=== PATIENT | male | born 1970 | race Caucasian/White ===

== ENCOUNTER 2017-05-14 09:39 | Emergency (ER) | payer SELFPAY ==
[2017-05-14] MEDS ORDERED: Albuterol/Ipratropium 3.0-0.5 MG/3 ML Neb Soln NEB ONE ×2 (10:00→13:05)
--- NOTE | 2017-05-14 11:15 | CR ---
EXAMINATION: Portable chest radiograph. HISTORY: Shortness of breath. FINDINGS: The trachea is midline. The heart is normal in size. There are increased central pulmonary infiltrat es predominantly within a perihilar distribution. No definite pleural effusion or pneumothorax. Osseous structures appear unremarkable. IMPRESSION: Centralized pulmonary opacities noted, this could represent pneumonia, edema, or inhalation injury.
[2017-05-14 11:16] LABS: CHLORIDE,CL 103 mmol/L (98-110); SODIUM,NA 137 mmol/L (136-146)
--- NOTE | 2017-05-14 11:26 | EDM.PDOC ---
ED HPI GENERAL MEDICAL PROBLEM - General Chief Complaint: Respiratory Problem Stated Complaint: CHEM IN BREATHING PASSAWAYS Time Seen by Provider: 05/14/17 09:47 Source of Information: Reports: Patient History Limitations: Reports: No Limitations - History of Present Illness INITIAL COMMENTS - FREE TEXT/NARRATIVE: History of present illness: []Patient was spraying some clear coat paint 3 days ago and developed shortness of breath at night. His symptoms have been progressively worsening. Patient denies any fevers or cough. He states he flew to and from [place] last week but denies having history of any blood clots, chest pain or leg swelling. Patient does have asthma and COPD and uses inhalers that have not been helping his us of breath. He also is on prednisone and for the last 2 days has been taking 20 mg a day without improvement Review of systems: As per history of present illness and below otherwise all systems reviewed and negative. Past medical history: As per history of present illness and as reviewed below otherwise noncontributory. Surgical history: As per history of present illness and as reviewed below otherwise noncontributory. Social history: No reported history of drug or alcohol abuse. Family history: As per history of present illness and as reviewed below otherwise noncontributory. Physical exam: General: Well developed, well nourished, short of breath with O2 sats high 80s on room air HEENT: Atraumatic, normocephalic, pupils reactive, negative for conjunctival pallor or scleral icterus, mucous membranes moist, throat clear, neck supple, nontender, trachea midline. Lungs: Clear to auscultation, breath sounds diminished bilaterally with crackles at the bases, chest nontender. Heart: S1S2, regular, negative for clicks, rubs, or JVD. Abdomen: Soft, nondistended, nontender. Negative for masses or hepatosplenomegaly. Negative for costovertebral tenderness. Pelvis: Stable nontender. Genitourinary: Deferred. Rectal: Deferred. Extremities: Atraumatic, negative for cords or calf pain. Neurovascular unremarkable. Neuro: Awake, alert, oriented. Cranial nerves II through XII unremarkable. Cerebellum unremarkable. Motor and sensory unremarkable throughout. Exam nonfocal. Diagnostics: []Labs are normal, and CT chest were done showing interstitial edema consistent with inhalation injury no PE Therapeutics: []Solu-Medrol, DuoNeb, oxygen Impression: []Inhalation injury with interstitial edema. Discussed with hospitalist here who recommends transferring this patient. Plan: []Transfer to [place] Definitive disposition and diagnosis as appropriate pending reevaluation and review of above. lungs Pain Score (Numeric/FACES): 5 - Related Data Allergies Allergy/AdvReac Type Severity Reaction Status Date / Time Penicillins Allergy Other Verified 05/14/17 09:49 Home Meds: Home Meds Albuterol [Ventolin HFA] 8 gm INH ASDIRECTED 05/14/17 [History] Dexamethasone [Dexamethasone] 4 mg PO ASDIRECTED 05/14/17 [History] Escitalopram [Lexapro] 10 mg PO DAILY 05/14/17 [History] Ipratropium [Atrovent HFA] 1 gm INH ASDIRECTED 05/14/17 [History] Past Medical History Respiratory History: Reports: Asthma Social & Family History - Family History Respiratory: Reports: Asthma Psychiatric: Reports: Anxiety - Tobacco Use Smoking Status *Q: Current Every Day Smoker Years of Tobacco use: 15 Packs/Tins Daily: 0.5 - Caffeine Use Caffeine Use: Reports: Energy Drinks, Soda - Recreational Drug Use Recreational Drug Use: No ED ROS GENERAL - Review of Systems Review Of Systems: See Below (See history of present illness) ED EXAM, GENERAL - Physical Exam Exam: See Below (See history of present illness) Course - Vital Signs Last Recorded V/S: Last Vital Signs Temp 36.3 C 05/14/17 09:54 Pulse 111 H 05/14/17 13:40 Resp 20 05/14/17 13:40 BP 113/72 05/14/17 13:40 Pulse Ox 94 L 05/14/17 13:40 - Orders/Labs/Meds Orders: Active Orders 24 hr Category Date Time Status Oxygen Therapy, ED [RC] ASDIRECTED Care 05/14/17 10:01 Active RT Aerosol Therapy [RC] ASDIRECTED Care 05/14/17 10:01 Active RT Aerosol Therapy [RC] ASDIRECTED Care 05/14/17 13:05 Active Labs: Laboratory Tests 05/14/17 05/14/17 05/14/17 Range/Units 10:15 10:15 10:15 WBC 13.47 H (4.0-11.0) K/uL RBC 4.77 (4.50-5.90) M/uL Hgb 15.1 (13.0-17.0) g/dL Hct 45.1 (38.0-50.0) % MCV 94.5 (80.0-98.0) fL MCH 31.7 (27.0-32.0) pg MCHC 33.5 (31.0-37.0) g/dL RDW Std Deviation 47.9 (28.0-62.0) fl RDW Coeff of Kwadwo 14 (11.0-15.0) % Plt Count 231 (150-400) K/uL MPV 10.10 (7.40-12.00) fL Neut % (Auto) 80.4 H (48.0-80.0) % Lymph % (Auto) 11.9 L (16.0-40.0) % Whitman % (Auto) 4.9 (0.0-15.0) % Eos % (Auto) 2.7 (0.0-7.0) % Baso % (Auto) 0.1 (0.0-1.5) % Neut # (Auto) 10.8 H (1.4-5.7) K/uL Lymph # (Auto) 1.6 (0.6-2.4) K/uL Whitman # (Auto) 0.7 (0.0-0.8) K/uL Eos # (Auto) 0.4 (0.0-0.7) K/uL Baso # (Auto) 0.0 (0.0-0.1) K/uL Nucleated RBC % 0.0 /100WBC Nucleated RBCs # 0 K/uL D-Dimer, Quantitative 0.79 H (0.0-0.52) mg/LFEU Sodium 137 (136-146) mmol/L Potassium 4.2 (3.5-5.1) mmol/L Chloride 103 (98-110) mmol/L Carbon Dioxide 25 (21-31) mmol/L BUN 15 (6.0-23.0) mg/dL Creatinine 0.8 (0.6-1.5) mg/dL Est Cr Clr Drug Dosing 86.26 mL/min Estimated GFR (MDRD) > 60.0 ml/min Glucose 89 (60-110) mg/dL Calcium 9.8 (8.8-10.8) mg/dL Total Bilirubin 0.6 (0.1-1.5) mg/dL AST 36 (5-40) IU/L ALT 53 (8-54) IU/L Alkaline Phosphatase 69 (40-150) B-Natriuretic Peptide (<100) PG/ML Total Protein 7.4 (6.0-8.0) g/dL Albumin 3.8 (3.5-5.0) g/dL Globulin 3.6 H (2.0-3.5) g/dL Albumin/Globulin Ratio 1.1 L (1.3-2.8) 05/14/17 Range/Units 10:16 WBC (4.0-11.0) K/uL RBC (4.50-5.90) M/uL Hgb (13.0-17.0) g/dL Hct (38.0-50.0) % MCV (80.0-98.0) fL MCH (27.0-32.0) pg MCHC (31.0-37.0) g/dL RDW Std Deviation (28.0-62.0) fl RDW Coeff of Kwadwo (11.0-15.0) % Plt Count (150-400) K/uL MPV (7.40-12.00) fL Neut % (Auto) (48.0-80.0) % Lymph % (Auto) (16.0-40.0) % Whitman % (Auto) (0.0-15.0) % Eos % (Auto) (0.0-7.0) % Baso % (Auto) (0.0-1.5) % Neut # (Auto) (1.4-5.7) K/uL Lymph # (Auto) (0.6-2.4) K/uL Whitman # (Auto) (0.0-0.8) K/uL Eos # (Auto) (0.0-0.7) K/uL Baso # (Auto) (0.0-0.1) K/uL Nucleated RBC % /100WBC Nucleated RBCs # K/uL D-Dimer, Quantitative (0.0-0.52) mg/LFEU Sodium (136-146) mmol/L Potassium (3.5-5.1) mmol/L Chloride (98-110) mmol/L Carbon Dioxide (21-31) mmol/L BUN (6.0-23.0) mg/dL Creatinine (0.6-1.5) mg/dL Est Cr Clr Drug Dosing mL/min Estimated GFR (MDRD) ml/min Glucose (60-110) mg/dL Calcium (8.8-10.8) mg/dL Total Bilirubin (0.1-1.5) mg/dL AST (5-40) IU/L ALT (8-54) IU/L Alkaline Phosphatase (40-150) B-Natriuretic Peptide 53 (<100) PG/ML Total Protein (6.0-8.0) g/dL Albumin (3.5-5.0) g/dL Globulin (2.0-3.5) g/dL Albumin/Globulin Ratio (1.3-2.8) Meds: Medications Discontinued Medications Generic Name Dose Route Start Last Admin Trade Name Freq PRN Reason Stop Dose Admin Albuterol/Ipratropium 3 ml 05/14/17 10:00 05/14/17 10:06 Duoneb 3.0-0.5 Mg/3 Ml [facility] 05/14/17 10:01 3 ml ONETIME ONE Administration Albuterol/Ipratropium 3 ml 05/14/17 13:05 05/14/17 13:11 Duoneb 3.0-0.5 Mg/3 Ml [facility] 05/14/17 13:06 3 ml ONETIME ONE Administration Lorazepam 1 mg 05/14/17 13:36 Ativan IVPUSH 05/14/17 13:37 ONETIME ONE Methylprednisolone Sodium Succinate 125 mg 05/14/17 13:04 05/14/17 13:40 Solu-Medrol IVPUSH 05/14/17 13:05 125 mg ONETIME ONE Administration Departure - Departure Time of Disposition: 13:49 Disposition: DC/Tfer to Acute Hospital 02 Condition: Good Clinical Impression: Toxic inhalation injury Qualifiers: Encounter type: initial encounter Injury intent: accidental or unintentional Qualified Code(s): T59.91XA - Toxic effect of unspecified gases, fumes and vapors, accidental (unintentional), initial encounter - Discharge Information Referrals: PCP,None [Primary Care Provider] - Forms: ED Department Discharge - My Orders Last 24 Hours: My Active Orders 05/14/17 10:01 Oxygen Therapy, ED [RC] ASDIRECTED RT Aerosol Therapy [RC] ASDIRECTED 05/14/17 13:05 RT Aerosol Therapy [RC] ASDIRECTED - Assessment/Plan Last 24 Hours: My Active Orders 05/14/17 10:01 Oxygen Therapy, ED [RC] ASDIRECTED RT Aerosol Therapy [RC] ASDIRECTED 05/14/17 13:05 RT Aerosol Therapy [RC] ASDIRECTED
--- NOTE | 2017-05-14 12:50 | CT ---
EXAMINATION: CTA chest HISTORY: Shortness of breath COMPARISON: Chest radiograph from the same day TECHNIQUE: Axial CT images obtained through the chest following the administration of 50 mL of Isovu e 37 and the right antecubital fossa. Coronal and sagittal reconstructions obtained. FINDINGS: Patchy airspace infiltrates noted within the lungs bilaterally predominantly within the pe rihilar distribution. No pleural effusion or pneumothorax. The heart is normal in size without a per icardial effusion. The thoracic aorta is normal in caliber. Main pulmonary arteries are patent witho ut a identified pulmonary embolism. Nonpathologically enlarged mediastinal and hilar lymph nodes not ed. The central airways are clear. No axillary lymphadenopathy. The visualized upper abdomen appears grossly unremarkable. No suspicious osseous abnormalities. IMPRESSION: 1. Patchy predominantly central perihilar infiltrates. This may represent edema, atypical infection, or possibly inhalational injury. 2. No pulmonary embolism identified.
[2017-05-14] MEDS ORDERED: methylPREDNISolone Sodium Succinate 125 MG/2 ML SDV IVPUSH ONE (13:04)
[2017-05-14] MEDS ORDERED: LORazepam 2 MG/ML MDV IVPUSH ONE (13:36)
[2017-05-14 13:41] VITALS: BP 113/72
[2017-05-14] MEDS ORDERED: Iopamidol 755 MG/ML 500 ML Multipack Bottle IVPUSH STA (16:20)
== END 2017-05-14 14:25 ==
LOC: MW.ED 09:39
DX: T59.91XA Toxic effect of unspecified gases, fumes and vapors, accidental (unintentional), initial encounter (principal); J45.909 Unspecified asthma, uncomplicated; F17.210 Nicotine dependence, cigarettes, uncomplicated; Z88.0 Allergy status to penicillin; Z79.899 Other long term (current) drug therapy
CPT/HCPCS: 36415; 71010; 71275; 80053; 83880; 85025; 85379; 94640; 94664; 96374; 96375; 99285; J2060; J2930; Q9967

== ENCOUNTER 2017-07-15 10:48 | Emergency (ER) | payer SELFPAY ==
--- NOTE | 2017-07-15 10:55 | EDM.PDOC ---
ED HPI GENERAL MEDICAL PROBLEM - General Chief Complaint: Lower Extremity Injury/Pain Stated Complaint: GOUT IN RT FOOT Time Seen by Provider: 07/15/17 10:50 - History of Present Illness INITIAL COMMENTS - FREE TEXT/NARRATIVE: HISTORY AND PHYSICAL: History of present illness: Patient's 47-year-old white male presents with a concern of right great toe pain patient has a long-standing history of gouty arthritis he states he's been off his medicines for about a year he has yet to secure local medical care he denies fever chills nausea vomiting denies trauma denies other joint pain or concern he has been treated in past with prednisone as well as indomethacin with success Review of systems: As per history of present illness and below otherwise all systems reviewed and negative. Past medical history: As per history of present illness and as reviewed below otherwise noncontributory. Surgical history: As per history of present illness and as reviewed below otherwise noncontributory. Social history: No reported history of drug or alcohol abuse. Family history: As per history of present illness and as reviewed below otherwise noncontributory. Physical exam: HEENT: Atraumatic, normocephalic, pupils reactive, negative for conjunctival pallor or scleral icterus, mucous membranes moist, throat clear, neck supple, nontender, trachea midline. Lungs: Clear to auscultation, breath sounds equal bilaterally, chest nontender. Heart: S1S2, regular, negative for clicks, rubs, or JVD. Abdomen: Soft, nondistended, nontender. Negative for masses or hepatosplenomegaly. Negative for costovertebral tenderness. Pelvis: Stable nontender. Genitourinary: Deferred. Rectal: Deferred. Extremities: Right foot is remarkable for tenderness and erythema in the region of the first metatarsal CMS neurovascular exam is unremarkable Neuro: Awake, alert, oriented. Cranial nerves II through XII unremarkable. Cerebellum unremarkable. Motor and sensory unremarkable throughout. Exam nonfocal. Diagnostics: None Therapeutics: None Impression: #1 gouty arthritis Definitive disposition and diagnosis as appropriate pending reevaluation and review of above. - Related Data Allergies Allergy/AdvReac Type Severity Reaction Status Date / Time Penicillins Allergy Other Verified 07/15/17 10:52 Home Meds: Home Meds Albuterol [Ventolin HFA] 8 gm INH ASDIRECTED 05/14/17 [History] Dexamethasone [Dexamethasone] 4 mg PO ASDIRECTED 05/14/17 [History] Escitalopram [Lexapro] 10 mg PO DAILY 05/14/17 [History] Ipratropium [Atrovent HFA] 1 gm INH ASDIRECTED 05/14/17 [History] Past Medical History Respiratory History: Reports: Asthma Social & Family History - Family History Respiratory: Reports: Asthma Psychiatric: Reports: Anxiety - Tobacco Use Smoking Status *Q: Current Every Day Smoker Years of Tobacco use: 15 Packs/Tins Daily: 0.5 - Caffeine Use Caffeine Use: Reports: Energy Drinks, Soda - Recreational Drug Use Recreational Drug Use: No Review of Systems - Review of Systems Review Of Systems: ROS reveals no pertinent complaints other than HPI. ED EXAM, GENERAL - Physical Exam Exam: See Below (See dictation) Departure - Departure Time of Disposition: 10:54 Disposition: Home, Self-Care 01 Condition: Good Clinical Impression: Acute gout - Discharge Information Referrals: PCP,None [Primary Care Provider] - Additional Instructions: The following information is given to patients seen in the emergency department who are being discharged to home. This information is to outline your options for follow-up care. We provide all patients seen in our emergency department with a follow-up referral. The need for follow-up, as well as the timing and circumstances, are variable depending upon the specifics of your emergency department visit. If you don't have a primary care physician on staff, we will provide you with a referral. We always advise you to contact your personal physician following an emergency department visit to inform them of the circumstance of the visit and for follow-up with them and/or the need for any referrals to a consulting specialist. The emergency department will also refer you to a specialist when appropriate. This referral assures that you have the opportunity for followup care with a specialist. All of these measure are taken in an effort to provide you with optimal care, which includes your followup. Under all circumstances we always encourage you to contact your private physician who remains a resource for coordinating your care. When calling for followup care, please make the office aware that this follow-up is from your recent emergency room visit. If for any reason you are refused follow-up, please contact the [facility] emergency department at and asked to speak to the emergency department charge nurse. [facility] [address] [place] [id number] Indomethacin prednisone as prescribed call to schedule routine appointment above with clinic return as needed as discussed
[2017-07-15 11:07] VITALS: BP 152/74
== END 2017-07-15 11:03 | disposition home or self-care (01) ==
LOC: MW.ED 10:48
DX: M10.9 Gout, unspecified (principal); J45.909 Unspecified asthma, uncomplicated; F17.210 Nicotine dependence, cigarettes, uncomplicated; Z88.0 Allergy status to penicillin; Z79.899 Other long term (current) drug therapy
CPT/HCPCS: 99282

== ENCOUNTER 2018-12-14 12:16 | Emergency (ER) | payer SELFPAY ==
[2018-12-14] MEDS ORDERED: Ketorolac 60 MG/2 ML SDV IM ONE (12:29)
--- NOTE | 2018-12-14 12:29 | EDM.PDOC ---
ED HPI GENERAL MEDICAL PROBLEM - General Chief Complaint: Upper Extremity Injury/Pain Stated Complaint: HURT WRIST Time Seen by Provider: 12/14/18 12:19 Source of Information: Reports: Patient History Limitations: Reports: No Limitations - History of Present Illness INITIAL COMMENTS - FREE TEXT/NARRATIVE: HISTORY AND PHYSICAL: Left wrist injury History of present illness: Patient is a 48-year-old male who presents to the emergency room with complaints of left wrist pain. He states he had slipped and fallen on the ice yesterday and unsure how he caught his arm. 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 He denies any previous injury to the affected extremity. Denies any numbness or tingling of the affected extremity. Denies hitting his head or any loss of consciousness. He's been able to ambulate and move all other extremities without any difficulty. Review of systems: As per history of present illness and below otherwise all systems reviewed and negative. Past medical history: As per history of present illness and as reviewed below otherwise noncontributory. Surgical history: As per history of present illness and as reviewed below otherwise noncontributory. Social history: See social history for further information Family history: As per history of present illness and as reviewed below otherwise noncontributory. Physical exam: General: Well-developed and well-nourished 48-year-old male. Alert and oriented. Nontoxic appearing and in no acute distress. HEENT: Atraumatic, normocephalic, pupils equal and reactive bilaterally, negative for conjunctival pallor or scleral icterus, mucous membranes moist, TMs normal bilaterally, throat clear, neck supple, nontender, trachea midline. No drooling or trismus noted. No meningeal signs. No hot potato voice noted. Lungs: Clear to auscultation, breath sounds equal bilaterally, chest nontender. Heart: S1S2, regular rate and rhythm without overt murmur Abdomen: Soft, nondistended, nontender. Negative for masses or hepatosplenomegaly. Negative for costovertebral tenderness. Pelvis: Stable nontender. Genitourinary: Deferred. Rectal: Deferred. Skin: Intact, warm, dry. No lesions or rashes noted. Extremities: Pain with palpation of the left anterior wrist. No snuffbox tenderness. Strong radial pulse. Cap refill less than 3 seconds. +CMS. Neurovascular unremarkable. Neuro: Awake, alert, oriented. Cranial nerves II through XII unremarkable. Cerebellum unremarkable. Motor and sensory unremarkable throughout. Exam nonfocal. Notes: X-ray shows no acute findings. Does have an old fracture that is noted on x- ray. Discussed these results with the patient and encouraged him to follow-up with the orthopedic provider on Sunday. We'll give him a cockup wrist splint and medication for pain. Supportive care measures were reviewed and discussed. Voices understanding and is agreeable to plan of care. Denies any further questions or concerns at this time. Diagnostics: Wrist x-ray Therapeutics: Toradol IM Prescription: Dahinda (#15) Impression: Left wrist injury Plan: 1. Rest, ice, elevate the extremity as able. Please use the splint for comfort. 2. Tylenol and/or ibuprofen as needed for pain management. 3. Please follow-up with the orthopedic provider and/or your primary care provider in the next 1-2 days. Return to the ED as needed and as discussed Definitive disposition and diagnosis as appropriate pending reevaluation and review of above. Left Wrist Pain Score (Numeric/FACES): 10 - Related Data Allergies Allergy/AdvReac Type Severity Reaction Status Date / Time Penicillins Allergy Other Verified 12/14/18 12:26 Home Meds: Home Meds Albuterol [Ventolin HFA] 8 gm INH ASDIRECTED 05/14/17 [History] Dexamethasone 4 mg PO ASDIRECTED 05/14/17 [History] Escitalopram [Lexapro] 10 mg PO DAILY 05/14/17 [History] Ipratropium [Atrovent HFA] 1 gm INH ASDIRECTED 05/14/17 [History] Acetaminophen/HYDROcodone [Dahinda 325-5 MG] 1 tab PO Q4H PRN #15 tablet 12/14/18 [Rx] Past Medical History HEENT History: Reports: None Cardiovascular History: Reports: Hypertension Respiratory History: Reports: Asthma Gastrointestinal History: Reports: None Genitourinary History: Reports: None Musculoskeletal History: Reports: Gout Neurological History: Reports: None Psychiatric History: Reports: Anxiety Endocrine/Metabolic History: Reports: None Dermatologic History: Reports: None - Infectious Disease History Infectious Disease History: Reports: Chicken Pox, Influenza - Past Surgical History HEENT Surgical History: Reports: None GI Surgical History: Reports: None Social & Family History - Family History Respiratory: Reports: Asthma Psychiatric: Reports: Anxiety - Caffeine Use Caffeine Use: Reports: Energy Drinks, Soda Review of Systems - Review of Systems Review Of Systems: ROS reveals no pertinent complaints other than HPI. ED EXAM, GENERAL - Physical Exam Exam: See Below (See dictation) Course - Vital Signs Last Recorded V/S: Last Vital Signs Temp 96.5 F 12/14/18 12:24 Pulse 97 12/14/18 12:24 Resp 18 12/14/18 12:24 BP 179/115 H 12/14/18 12:37 Pulse Ox 95 12/14/18 12:24 - Orders/Labs/Meds Orders: Active Orders 24 hr Category Date Time Status DME for Discharge [COMM] Stat Oth 12/14/18 12:29 Ordered Meds: Medications Discontinued Medications Generic Name Dose Route Start Last Admin Trade Name Freq PRN Reason Stop Dose Admin Ketorolac Tromethamine 60 mg 12/14/18 12:29 12/14/18 12:35 Toradol IM 12/14/18 12:30 60 mg ONETIME ONE Administration Departure - Departure Time of Disposition: 13:16 Disposition: Home, Self-Care 01 Clinical Impression: Left wrist injury Qualifiers: Encounter type: initial encounter Qualified Code(s): S69.92XA - Unspecified injury of left wrist, hand and finger(s), initial encounter - Discharge Information Prescriptions: Acetaminophen/HYDROcodone [Dahinda 325-5 MG] 1 tab PO Q4H PRN #15 tablet PRN Reason: Pain Referrals: PCP,None [Primary Care Provider] - Forms: ED Department Discharge Additional Instructions: The following information is given to patients seen in the emergency department who are being discharged to home. This information is to outline your options for follow-up care. We provide all patients seen in our emergency department with a follow-up referral. The need for follow-up, as well as the timing and circumstances, are variable depending upon the specifics of your emergency department visit. If you don't have a primary care physician on staff, we will provide you with a referral. We always advise you to contact your personal physician following an emergency department visit to inform them of the circumstance of the visit and for follow-up with them and/or the need for any referrals to a consulting specialist. The emergency department will also refer you to a specialist when appropriate. This referral assures that you have the opportunity for follow-up care with a specialist. All of these measure are taken in an effort to provide you with optimal care, which includes your follow-up. Under all circumstances we always encourage you to contact your private physician who remains a resource for coordinating your care. When calling for follow-up care, please make the office aware that this follow-up is from your recent emergency room visit. If for any reason you are refused follow-up, please contact the [facility] Emergency Department at and asked to speak to the emergency department charge nurse. [facility] [address] [place] [id number] [address] [facility] Specialty [facility] - Orthopedic Clinic Professional Building [address] [place] [address], [address] [place] [address] 1. Rest, ice, elevate the extremity as able. Please use the splint for comfort. 2. Tylenol and/or ibuprofen as needed for pain management. 3. Please follow-up with the orthopedic provider and/or your primary care provider in the next 1-2 days. Return to the ED as needed and as discussed - My Orders Last 24 Hours: My Active Orders 12/14/18 12:29 DME for Discharge [COMM] Stat - Assessment/Plan Last 24 Hours: My Active Orders 12/14/18 12:29 DME for Discharge [COMM] Stat
--- NOTE | 2018-12-14 13:07 | CR ---
HISTORY: Wrist pain. FINDINGS: Two views of the wrist are provided. There are several smoothly marginated fragments of bone or mineralized density in the region of the articulation between the trapezium and 1st metacarpal with mild degenerative change in this region. These fragments do not have the typical appearance for acute type fracture fragments. There is no evidence for fracture elsewhere. Carpal bone alignment appears anatomic. No arthritic change is seen elsewhere. IMPRESSION: No acute fracture identified. Mild degenerative change is seen at the articulation between the trapezium and 1st metacarpal. There could be a old fracture fragments or loose bodies in this region. Acute fracture is considered less likely. Please correlate with pain in this region. Dictated by Lio Jacob MD @ Dec 14 2018 1:06PM Signed by Dr. Lio Jacob @ Dec 14 2018 1:06PM
[2018-12-14 13:46] VITALS: BP 136/78
== END 2018-12-14 13:42 | disposition home or self-care (01) ==
LOC: MW.ED 12:16
DX: S69.92XA Unspecified injury of left wrist, hand and finger(s), initial encounter (principal); I10 Essential (primary) hypertension; J45.909 Unspecified asthma, uncomplicated; Z88.0 Allergy status to penicillin; Z79.899 Other long term (current) drug therapy; W00.0XXA Fall on same level due to ice and snow, initial encounter
CPT/HCPCS: 73100; 96372; 99283; J1885